=== PATIENT | female | born 1990 | race Caucasian/White ===

== ENCOUNTER 2018-05-26 08:37 | Emergency (ER) | payer OTHER ==
[~2018-05-26] VITALS: Wt 80.0 kg
--- NOTE | 2018-05-26 09:10 | ERD ---
ER Documentation Chief Complaint Chief Complaint abdom inal cramping with diarrhea x 2 days,nausea seen in [facility] yesterday HPI 27-year-old female, presents to the emergency department complaining of abdominal pain that started 3 days ago while the patient was in [place]. The pain is cramping, 8/10, associated with diarrhea, nausea and vomiting. ROS All systems reviewed and are negative except as per history of present illness. Medications Home Meds Active Scripts Ranitidine Hcl* (Zantac*) 150 Mg Tablet, 150 MG PO BID PRN for EPIGASTRIC PAIN for 5 Days, #10 TAB Prov:MIMA MERINO MD 05/26/18 Ondansetron Hcl* (Zofran*) 4 Mg Tablet, 4 MG PO Q8H PRN for NAUSEA AND/OR VOMITING, #12 TAB Prov:MIMA MERINO MD 05/26/18 Ciprofloxacin Hcl* (Ciprofloxacin Hcl*) 250 Mg Tablet, 250 MG PO BID, #14 TAB Prov:MIMA MERINO MD 05/26/18 Allergies Allergies: Coded Allergies: No Known Allergy (Unverified , 05/26/18) PMhx/Soc Medical and Surgical Hx: pt denies Medical Hx, pt denies Surgical Hx FmHx Family History: No diabetes, No coronary disease Physical Exam Vitals Vital Signs Date Temp Pulse Resp B/P (MAP) Pulse Ox O2 O2 Flow FiO2 Time Delivery Rate 05/26/18 69 20 135/68 99 Room Air 12:15 (90) 05/26/18 98.2 99 18 141/67 99 08:38 (91) Physical Exam Patient alert, oriented, vital signs stable. HEAD: Normocephalic, atraumatic. EYES: PERRLA, EOMI, Sclera and conjunctiva appear normal. NOSE: Clear and patent nostrils. EARS: Canals clear, tympanic membranes WNL. MOUTH: Dry oral mucosa, no oral lesions. THROAT: Normal oropharynx, no tonsillar exudates. NECK: Supple, No lymphadenopathy. Full ROM without pain or tenderness. HEART: RRR, no rubs, murmurs, clicks or gallops. LUNGS: Clear to auscultation. ABDOMEN: Soft, non-tender without masses or hepatosplenomegaly. EXTREMITIES: No edema bilaterally. BACK: Full ROM, no deformity, normal back exam NEURO: Cranial nerves grossly intact, no motor or sensory deficit SKIN: No rashes, no petechia. Result Diagram: 05/26/1892605/26/18926 Results 24 hrs Laboratory Tests Test 05/26/18 09:27 05/26/18 10:33 White Blood Count 9.3 10^3/ul Red Blood Count 6.03 10^6/ul Hemoglobin 17.3 g/dl Hematocrit 50.6 % Mean Corpuscular Volume 83.9 fl Mean Corpuscular Hemoglobin 28.7 pg Mean Corpuscular Hemoglobin Concent 34.2 g/dl Red Cell Distribution Width 12.8 % Platelet Count 258 10^3/UL Mean Platelet Volume 10.4 fl Immature Granulocytes % 0.300 % Neutrophils % 74.1 % Lymphocytes % 16.5 % Monocytes % 8.6 % Eosinophils % 0.0 % Basophils % 0.5 % Nucleated Red Blood Cells % 0.0 /100WBC Immature Granulocytes # 0.030 10^3/ul Neutrophils # 6.9 10^3/ul Lymphocytes # 1.5 10^3/ul Monocytes # 0.8 10^3/ul Eosinophils # 0.0 10^3/ul Basophils # 0.1 10^3/ul Nucleated Red Blood Cells # 0.0 10^3/ul Sodium Level 140 mmol/L Potassium Level 3.6 mmol/L Chloride Level 98 mmol/L Carbon Dioxide Level 22 mmol/L Anion Gap 20 Blood Urea Nitrogen 35 mg/dl Creatinine 1.82 mg/dl Est Glomerular Filtrat Rate mL/min 33 mL/min Glucose Level 120 mg/dl Calcium Level 10.1 mg/dl Total Bilirubin 0.7 mg/dl Direct Bilirubin 0.00 mg/dl Indirect Bilirubin 0.7 mg/dl Aspartate Amino Transf (AST/SGOT) 33 IU/L Alanine Aminotransferase (ALT/SGPT) 16 IU/L Alkaline Phosphatase 84 IU/L Total Protein 10.2 g/dl Albumin 5.5 g/dl Globulin 4.70 g/dl Albumin/Globulin Ratio 1.17 Lipase 52 U/L Serum HCG, Qualitative NEGATIVE Urine Color MARY Urine Clarity CLOUDY Urine pH 5.0 Urine Specific [place] 1.033 Urine Ketones TRACE mg/dL Urine Nitrite NEGATIVE mg/dL Urine Bilirubin 1+ mg/dL Urine Urobilinogen 1+ mg/dL Urine Leukocyte Esterase TRACE Jeremiah/ul Urine Microscopic RBC 12 /HPF Urine Microscopic WBC 26 /HPF Urine Squamous Epithelial Cells MODERATE /HPF Urine Bacteria FEW /HPF Urine Hyaline Casts FEW /HPF Urine Granular Casts MODERATE /HPF Urine Mucus MANY /HPF Urine Hemoglobin 1+ mg/dL Urine Glucose NEGATIVE mg/dL Urine Total Protein 2+ mg/dl Current Medications Medications Dose Sig/Regina Start Time Status Last (Trade) Ordered Route PRN Stop Time Admin Dose Reason Admin Sodium 1,000 ml @ Q1H STAT 05/26/18 DC 05/26/18 Chloride 1,000 mls/hr IV 09:14 09:35 05/26/18 10:13 Morphine 1 mg ONCE STAT 05/26/18 DC 05/26/18 Sulfate IV 09:14 09:35 (morphine) 05/26/18 09:31 Ondansetron 4 mg ONCE STAT 05/26/18 DC 05/26/18 HCl (Zofran IV 09:14 09:34 Inj) 05/26/18 09:31 Famotidine 20 mg ONCE STAT 05/26/18 DC 05/26/18 (Pepcid Iv) IV 09:14 09:34 05/26/18 09:31 Sodium 1,000 ml @ Q1H STAT 05/26/18 DC 05/26/18 Chloride 1,000 mls/hr IV 10:59 11:16 05/26/18 11:58 500 mg ONCE ONCE 05/26/18 DC 05/26/18 Ciprofloxacin PO 12:00 11:47 (Cipro) 05/26/18 12:01 CT abdomen: LOWER THORAX: Lung bases are clear. LIVER AND GALLBLADDER: Mildly diminished attenuation throughout the liver consistent with diffuse steatosis. The liver and gallbladder are otherwise unremarkable. SPLEEN: Normal. PANCREAS: Normal. ADRENAL GLANDS: Normal. KIDNEYS: Kidneys are symmetric in size and morphology. No hydronephrosis or renal calculus. Bilateral ureters are unremarkable. VASCULATURE: Abdominal aorta is normal in caliber. BOWEL AND MESENTERY: Stomach and small bowel are unremarkable. A normal appendix is identified. The large bowel is unremarkable. Multiple mildly prominent lymph nodes are identified within the right lower abdomen, largest measuring 10 mm short-axis diameter. CT pelvis: The urinary bladder is unremarkable. Uterus and ovaries are grossly unremarkable for age. There is no free fluid in the pelvis. Bones: Regional bones are intact. Superficial soft tissues are unremarkable. IMPRESSION: 1. Multiple mildly prominent right lower quadrant lymph nodes, nonspecific and possibly reactive, consider mesenteric adenitis. 2. No additional acute findings. Normal appendix. 3. No renal calcifications. No evidence of obstructive uropathy. Procedures/MDM Physical exam unremarkable, patient in no distress, hydrated, adequate oral intake, abdomen, soft, nontender, no peritoneal signs. Differential diagnosis include but not limited to: gastrointestinal infection bacterial/viral, UTI, appendicitis, colitis, food poisoning, food intolerance. Low suspicion for acute abdomen Physical examination and clinical presentation consistent most likely with dehyd ration secondary to infectious gastroenteritis, the patient was also found to have a urinary tract infection. During the ED course the patient remained stable, overall improvement of the symptoms after receiving treatment in the emergency department with IV fluids. Clinical impression discussed with the patient who agrees with management. The patient is stable to be discharged home, Some side effects of prescribed medications (headache, rash, nausea, vomiting, diarrhea, interactions with other medications) were reviewed. The patient requires a follow up with the primary care provider in the next 48h. If symptoms persist, worsen or new symptoms develop, then patient should return to the ED immediately. Disclaimer: Inadvertent spelling and grammatical errors are likely due to EHR/dictation software use and do not reflect on the overall quality of patient care. Also, please note that the electronic time recorded on this note does not necessarily reflect the actual time of the patient encounter. Departure Diagnosis: Primary Impression: Abdominal pain Additional Impressions: Infectious gastroenteritis UTI (urinary tract infection) Condition: Stable Additional Instructions: Thank you very much for allowing us to participate in your care. Your health and safety is our top priority at [facility]. Call your primary care doctor TOMORROW for an appointment during the next 2-4 days and bring all the information and medications prescribed. Have prescriptions filled and follow precisely the directions on the label. If the symptoms get worse and your provider is unavailable, return to the Emergency Department immediately. MIMA MERINO MD May 26, 2018 09:10
[2018-05-26] MEDS ORDERED: SOD CHLORIDE 0.9% 1,000 ML IV STA ×2 (09:14→10:59)
[2018-05-26] MEDS ORDERED: ONDANSETRON 4 MG INJ IV STA (09:14)
[2018-05-26] MEDS ORDERED: morphine 2 MG INJ IV STA (09:14)
[2018-05-26] MEDS ORDERED: FAMOTIDINE 20 MG INJ IV STA (09:14)
[2018-05-26] MEDS ORDERED: ONDA4TAB8 PO (11:43)
[2018-05-26] MEDS ORDERED: RANI150T35 PO (11:43)
[2018-05-26] MEDS ORDERED: CIPR-193 PO (11:43)
[2018-05-26] MEDS ORDERED: CIPROFLOXACIN 500 MG TAB PO ONE (12:00)
[2018-05-26 12:15] VITALS: BP 135/68; PULSE 69; RESP 20
== END 2018-05-26 12:18 | disposition home or self-care (01) ==
LOC: FTE 08:37
DX: A09 Infectious gastroenteritis and colitis, unspecified (principal); N39.0 Urinary tract infection, site not specified
CPT/HCPCS: 36415; 74176; 80053; 81001; 83690; 84703; 85025; 96361; 96374; 96375; J2270; J2405; J7030; Z7502; Z7610